=== PATIENT | female | born 1955 | race Two or more races ===

== ENCOUNTER 2018-02-15 13:36 | Outpatient (CLI) | payer OTHER ==
[~2018-02-15 13:36] MED LIST: CELEBREX100 MG PO; DICLOFENAC POTA50 MG PO; PEPCID20 MG PO; SKELAXIN800 MG PO; SYNTHROID50 MCG PO
== END 2018-02-15 14:00 | disposition home or self-care (01) ==
LOC: NUCLEAR 13:36
DX: I83.001 Varicose veins of unspecified lower extremity with ulcer of thigh (principal); I80.00 Phlebitis and thrombophlebitis of superficial vessels of unspecified lower extremity

== ENCOUNTER 2018-02-23 12:55 | Outpatient (CLI) | payer OTHER | END 2018-02-23 13:05 | disposition home or self-care (01) | LOC: RAD 12:55 | DX: J44.9 Chronic obstructive pulmonary disease, unspecified (principal); M47.894 Other spondylosis, thoracic region ==

== ENCOUNTER 2018-02-25 12:32 | Outpatient (CLI) | payer OTHER | END 2018-02-25 15:05 | disposition home or self-care (01) | LOC: RAD 12:32 | DX: M17.11 Unilateral primary osteoarthritis, right knee (principal); M17.12 Unilateral primary osteoarthritis, left knee ==

== ENCOUNTER 2018-03-12 15:42 | Outpatient (CLI) | payer OTHER | END 2018-03-12 15:54 | disposition home or self-care (01) | LOC: RAD 501 15:42 | DX: M25.562 Pain in left knee (principal) ==

== ENCOUNTER 2018-04-02 09:56 | Outpatient (CLI) | payer OTHER | END 2018-04-02 15:00 | disposition home or self-care (01) | LOC: SONOGRAMA 09:56 → MAMO-SONO 10:15 → SONOGRAMA 15:00 | DX: E03.8 Other specified hypothyroidism (principal); E04.1 Nontoxic single thyroid nodule ==

== ENCOUNTER → 2018-05-14 | Emergency (ER) | payer OTHER ==
[~2018-05-14] VITALS: Ht 162.6 cm; Wt 91.6 kg
== END | disposition home or self-care (01) ==
LOC: ER 11:49
DX: M62.838 Other muscle spasm (principal)

== ENCOUNTER → 2019-02-07 | Outpatient (CLI) | payer OTHER | END | disposition home or self-care (01) | LOC: NUCLEAR 11:00 | DX: G45.9 Transient cerebral ischemic attack, unspecified (principal) ==

== ENCOUNTER → 2019-06-08 | Outpatient (CLI) | payer OTHER | END | disposition home or self-care (01) | LOC: TOM 09:46 | DX: R10.84 Generalized abdominal pain (principal) | CPT/HCPCS: 74177; Q9965 ==

== ENCOUNTER 2019-11-04 13:40 | Outpatient (CLI) | payer OTHER | END 2019-11-04 13:52 | disposition home or self-care (01) | LOC: SONOGRAMA 13:40 | DX: S76.091A Other specified injury of muscle, fascia and tendon of right hip, initial encounter (principal) ==

== ENCOUNTER → 2022-05-28 10:23 | Outpatient (CLI) | payer OTHER ==
[~2022-05-28 10:23] MED LIST changes: +FAMOTIDINE40 MG PO; +LIDODERM1 EACH TOP; +VOLTAREN-XR100 MG PO
== END | disposition home or self-care (01) ==
LOC: LAB 10:23
PROVIDERS: ATTEND Internal Medicine Hematology & Oncology
DX: D50.8 Other iron deficiency anemias (principal); R79.9 Abnormal finding of blood chemistry, unspecified; I10 Essential (primary) hypertension; R74.02 Elevation of levels of lactic acid dehydrogenase [LDH]; K76.89 Other specified diseases of liver; D63.8 Anemia in other chronic diseases classified elsewhere; D55.0 Anemia due to glucose-6-phosphate dehydrogenase [G6PD] deficiency; D51.1 Vitamin B12 deficiency anemia due to selective vitamin B12 malabsorption with proteinuria; D63.1 Anemia in chronic kidney disease; E03.8 Other specified hypothyroidism; E06.3 Autoimmune thyroiditis; C56.9 Malignant neoplasm of unspecified ovary; R97.8 Other abnormal tumor markers; R97.1 Elevated cancer antigen 125 [CA 125]; R97.0 Elevated carcinoembryonic antigen [CEA]

== ENCOUNTER 2022-06-30 09:18 | Outpatient (CLI) | payer OTHER | END 2022-06-30 09:19 | disposition home or self-care (01) | LOC: SONOGRAMA 09:18 | PROVIDERS: ATTEND Pathology Anatomic Pathology & Clinical Pathology | DX: E03.8 Other specified hypothyroidism (principal); E06.3 Autoimmune thyroiditis; D34 Benign neoplasm of thyroid gland ==

== ENCOUNTER 2022-11-05 12:10 | Outpatient (CLI) | payer OTHER | END 2022-11-05 12:12 | disposition home or self-care (01) | LOC: RAD 12:10 | PROVIDERS: ATTEND Internal Medicine Pulmonary Disease | DX: J44.1 Chronic obstructive pulmonary disease with (acute) exacerbation (principal) ==

== ENCOUNTER 2022-12-24 13:18 | Outpatient (CLI) | payer OTHER | END 2022-12-24 13:19 | disposition home or self-care (01) | LOC: NUCLEAR 13:18 | PROVIDERS: ATTEND Internal Medicine Endocrinology, Diabetes & Metabolism | DX: M81.0 Age-related osteoporosis without current pathological fracture (principal) ==

== ENCOUNTER 2023-10-29 10:52 | Outpatient (CLI) | payer OTHER | END 2023-10-29 10:55 | disposition home or self-care (01) | LOC: SONOGRAMA 10:52 | PROVIDERS: ATTEND Pathology Anatomic Pathology & Clinical Pathology | DX: D34 Benign neoplasm of thyroid gland (principal); E07.89 Other specified disorders of thyroid; E04.2 Nontoxic multinodular goiter ==

== ENCOUNTER 2024-08-04 12:11 | Outpatient (CLI) | payer OTHER | END 2024-08-04 12:18 | disposition home or self-care (01) | LOC: RAD 12:11 | PROVIDERS: ATTEND Physical Medicine & Rehabilitation | DX: M54.2 Cervicalgia (principal); M54.6 Pain in thoracic spine; M54.59 Other low back pain ==

== ENCOUNTER 2024-12-29 12:22 | Outpatient (CLI) | payer OTHER | END 2024-12-29 12:24 | disposition home or self-care (01) | LOC: NUCLEAR 12:22 | PROVIDERS: ATTEND Internal Medicine | DX: M81.0 Age-related osteoporosis without current pathological fracture (principal) ==

== ENCOUNTER 2025-07-25 13:40 | Outpatient (CLI) | payer OTHER | END 2025-07-25 13:45 | disposition home or self-care (01) | LOC: RAD 13:40 | PROVIDERS: ATTEND Physical Medicine & Rehabilitation | DX: J45.901 Unspecified asthma with (acute) exacerbation (principal); R05.1 Acute cough; M54.59 Other low back pain ==